=== PATIENT | male | born 1965 | race Caucasian/White ===

== ENCOUNTER 2016-12-25 15:11 | Emergency (ER) | payer BC ==
[2016-12-25 15:22] VITALS: RESP 20
[2016-12-25] MEDS ORDERED: Sodium Chloride 0.9% 1,000 ML IV ONE (16:41)
[2016-12-25 16:59] LABS: URINE BILIRUBIN NEGATIVE (NEGATIVE); URINE BLOOD NEGATIVE (NEGATIVE); URINE COLOR Yellow (YELLOW); URINE GLUCOSE (UA) 3+ mg/dL (Normal); URINE KETONE NEGATIVE (NEGATIVE); URINE LEUKOCYTE ESTERASE NEG Leu/uL (Negative); URINE PROTEIN NEGATIVE (NEGATIVE); URINE UROBILINOGEN NORMAL mg/dL (0.2-1.0); WBC URINE < 1 /hpf (0-5)
[2016-12-25 17:02] LABS: EOS # 0.1 K/uL (0.0-0.7); LYMPH # 0.9 K/uL (1.0-4.3); MONO # 0.7 K/uL (0.0-0.8); RED CELL DISTRIBUTION WIDTH 13.5 % (11.5-14.5)
[2016-12-25 17:04] LABS: BASO % 0.6 % (0.0-2.0); EOS % 3.5 % (0.0-4.0); HEMATOCRIT 48.3 % (35.0-51.0); LYMPH % 34.3 % (20.0-40.0); MEAN CELL VOLUME 93.1 fL (80.0-94.0); MEAN CORPUSCULAR HEMOGLOBIN 30.7 pg (27.0-31.0); MEAN CORPUSCULAR HGB CONC 32.9 g/dL (33.0-37.0); MEAN PLATELET VOLUME 8.8 fL (7.2-11.7); MONO % 27.9 % (0.0-10.0); NRBC % 0.4 % (0.0-2.0); PLATELET COUNT 160 K/uL (130-400)
[2016-12-25 17:04] LABS: VENOUS BLOOD GAS BASE EXCESS 3.7 mmol/L (0.0-2.0); VENOUS BLOOD GAS PCO2 54 mmHg (40-60); VENOUS BLOOD PH 7.36 (7.32-7.43)
[2016-12-25 17:07] LABS: WHITE BLOOD COUNT 2.6 K/uL (4.8-10.8)
[2016-12-25 17:25] LABS: CHLORIDE 102 mmol/L (98-107)
[2016-12-25 17:26] VITALS: O2SAT 95
[2016-12-25 17:26] LABS: POTASSIUM 3.5 mmol/L (3.6-5.2); SODIUM 140 mmol/L (132-148)
[2016-12-25 17:28] LABS: ALB/GLOB RATIO 1.2 (1.0-2.1); BILIRUBIN,TOTAL 0.7 mg/dL (0.2-1.3); CARBON DIOXIDE 28 mmol/L (22-30); GFR AFRICAN-AMERICAN > 60; TOTAL PROTEIN 7.6 g/dL (6.3-8.3)
[2016-12-25 17:29] LABS: ALKALINE PHOSPHATASE 53 U/L (38-126); ALT/SGPT 50 U/L (21-72); AST/SGOT 42 U/L (17-59); BLOOD UREA NITROGEN 18 mg/dL (9-20); CALCIUM 8.9 mg/dl (8.6-10.4); GLUCOSE,RANDOM 87 mg/dL (75-110)
[2016-12-25] MEDS ORDERED: Sodium Chloride 0.9% 1,000 ML ONE (17:33)
[2016-12-25 17:44] LABS: BASOPHIL 1 % (0-2); EOSINOPHIL 3 % (0-4); NEUTROPHIL 27 % (50-75); TOTAL CELLS COUNTED 100
--- NOTE | 2016-12-25 18:37 | C.PDOC ---
History Of Present Illness 51 year old male presents to the ED with complaints of internal fever and bodyaches including the back and legs beginning 8 days ago. Patient states he recently returning from visiting [facility] and denies any headache, neck pain, dizziness, SOB, nausea, or vomiting. Time Seen by Provider: 12/25/16 16:24 Chief Complaint (Nursing): Flu-like Symptoms History Per: Patient History/Exam Limitations: no limitations Onset/Duration Of Symptoms: Days (8 days ago when returned from [facility] ) Current Symptoms Are (Timing): Still Present Associated Symptoms: Fever (subjective ). denies: Chills, Cough, Vomiting, Diarrhea Recent travel outside of the [place]: Yes (to [facility] for visiting) Past Medical History Reviewed: Historical Data, Nursing Documentation, Vital Signs Vital Signs: Last Vital Signs Temp 99.1 F 12/25/16 18:39 Pulse 77 12/25/16 18:39 Resp 20 12/25/16 18:39 BP 114/67 12/25/16 18:39 Pulse Ox 95 12/25/16 18:39 - Medical History PMH: HTN, Hypercholesterolemia Surgical History: Cholecystectomy Family History: States: Unknown Family Hx - Social History Hx Alcohol Use: No Hx Substance Use: No - Immunization History Hx Tetanus Toxoid Vaccination: No Hx Influenza Vaccination: No Hx Pneumococcal Vaccination: No Review Of Systems Constitutional: Positive for: Fever (subjective ), Other (generalized body aches ). Negative for: Chills, Sweats Cardiovascular: Negative for: Chest Pain, Palpitations Respiratory: Negative for: Cough, Shortness of Breath Gastrointestinal: Negative for: Nausea, Vomiting, Abdominal Pain, Diarrhea Neurological: Negative for: Headache Physical Exam - Physical Exam Appears: Non-toxic, No Acute Distress, Other (patient is afebrile in the ED and is obese ) Skin: Warm, Dry, No Rash, Other (flushed ) Head: Atraumatic Eye(s): bilateral: PERRL, EOMI Oral Mucosa: Moist Neck: Supple Chest: Symmetrical, No Deformity Cardiovascular: Rhythm Regular Respiratory: No Rales, No Rhonchi, No Stridor, No Wheezing Gastrointestinal/Abdominal: Soft, No Tenderness, No Distention, No Guarding, No Rebound Neurological/Psych: Oriented x3 (awake, alert, and cooperative ) ED Course And Treatment - Laboratory Results Result Diagrams: 12/25/16 16:54 12/25/16 16:54 O2 Sat by Pulse Oximetry: 95 (room air) Medical Decision Making Medical Decision Making: Patient was given motrin, Tylenol, and blood work was performed. Blood work was unremarkable aside from a slightly low WBC. HIV test was offered but patient refused and stated he would follow up in the clinic. Disposition Counseled Patient/Family Regarding: Studies Performed, Diagnosis, Need For Followup - Disposition Referrals: [facility] [Outside] Disposition: HOME/ ROUTINE Disposition Time: 18:35 Condition: STABLE Prescriptions: Ibuprofen [Motrin] 600 mg PO TID #15 tab Instructions: Viral Syndrome (ED) Forms: Gen Discharge Inst Maltese, Work Excuse - POA Present On Arrival: None - Clinical Impression Clinical Impression: Influenza-like illness - Scribe Statement The provider has reviewed the documentation as recorded by the Scribe Huma Nova All medical record entries made by the Scribe were at my direction and personally dictated by me. I have reviewed the chart and agree that the record accurately reflects my personal performance of the history, physical exam, medical decision making, and the department course for this patient. I have also personally directed, reviewed, and agree with the discharge instructions and disposition.
[2016-12-25 18:39] VITALS: BP 114/67; PULSE 77; TEMP 99.1
--- NOTE | 2016-12-26 08:46 | RAD ---
HISTORY: Sepsis Patient COMPARISON: 11/27/2015 FINDINGS: LUNGS: No active pulmonary disease. PLEURA: No significant pleural effusion identified, no pneumothorax apparent. CARDIOVASCULAR: Normal. OSSEOUS STRUCTURES: No significant abnormalities. VISUALIZED UPPER ABDOMEN: Normal. OTHER FINDINGS: None. IMPRESSION: No active disease.
== END 2016-12-25 18:42 | disposition home or self-care (01) ==
LOC: C.ER 15:11
DX: J11.1 Influenza due to unidentified influenza virus with other respiratory manifestations (principal); I10 Essential (primary) hypertension; E78.00 Pure hypercholesterolemia, unspecified
CPT/HCPCS: 71010; 80053; 81001; 82803; 85025; 87040; 87086; 96360; 99285; J7040

== ENCOUNTER 2017-06-29 00:28 | Emergency (ER) | payer BC ==
[2017-06-29 00:41] VITALS: RESP 18
[2017-06-29 01:27] LABS: BASO % 0.4 % (0.0-2.0); EOS # 0.1 K/uL (0.0-0.7); EOS % 0.9 % (0.0-4.0); HEMATOCRIT 43.1 % (35.0-51.0); LYMPH # 0.9 K/uL (1.0-4.3); LYMPH % 16.4 % (20.0-40.0); MEAN CELL VOLUME 91.6 fL (80.0-94.0); MEAN CORPUSCULAR HEMOGLOBIN 32.3 pg (27.0-31.0); MEAN CORPUSCULAR HGB CONC 35.2 g/dL (33.0-37.0); MEAN PLATELET VOLUME 8.2 fL (7.2-11.7); MONO # 0.7 K/uL (0.0-0.8); MONO % 11.4 % (0.0-10.0); RED CELL DISTRIBUTION WIDTH 13.4 % (11.5-14.5); WHITE BLOOD COUNT 5.8 K/uL (4.8-10.8)
[2017-06-29 01:38] LABS: ALB/GLOB RATIO 1.5 (1.0-2.1); ALKALINE PHOSPHATASE 45 U/L (38-126); ALT/SGPT 84 U/L (21-72); AMYLASE 72 U/L (30-110); AST/SGOT 118 U/L (17-59); BILIRUBIN,TOTAL 0.9 mg/dL (0.2-1.3); BLOOD UREA NITROGEN 27 mg/dL (9-20); CALCIUM 8.3 mg/dl (8.6-10.4); CARBON DIOXIDE 24 mmol/L (22-30); CHLORIDE 100 mmol/L (98-107); GFR AFRICAN-AMERICAN > 60; GLUCOSE,RANDOM 197 mg/dL (75-110); POTASSIUM 3.6 mmol/L (3.6-5.2); SODIUM 135 mmol/L (132-148); TOTAL PROTEIN 6.7 g/dL (6.3-8.3)
[2017-06-29 01:41] LABS: RBC URINE 1 /hpf (0-3); URINE BILIRUBIN NEGATIVE (NEGATIVE); URINE BLOOD NEGATIVE (NEGATIVE); URINE COLOR Yellow (YELLOW); URINE GLUCOSE (UA) 3+ mg/dL (Normal); URINE KETONE NEGATIVE (NEGATIVE); URINE LEUKOCYTE ESTERASE NEG Leu/uL (Negative); URINE PROTEIN NEGATIVE (NEGATIVE); URINE UROBILINOGEN NORMAL mg/dL (0.2-1.0); WBC URINE < 1 /hpf (0-5)
[2017-06-29 03:31] VITALS: BP 127/73; PULSE 93; TEMP 98.1; O2SAT 95
--- NOTE | 2017-06-29 04:05 | C.PDOC ---
Time Seen by Provider: 06/29/17 01:02 Chief Complaint (Nursing): Abdominal Pain Past Medical History Vital Signs: Last Vital Signs Temp 98.1 F 06/29/17 03:30 Pulse 93 H 06/29/17 03:30 Resp 18 06/29/17 03:30 BP 127/73 06/29/17 03:30 Pulse Ox 95 06/29/17 03:30 - Medical History PMH: HTN, Hypercholesterolemia Surgical History: Cholecystectomy Family History: States: Unknown Family Hx - Social History Hx Alcohol Use: No Hx Substance Use: No - Immunization History Hx Tetanus Toxoid Vaccination: No Hx Influenza Vaccination: No Hx Pneumococcal Vaccination: No ED Course And Treatment - Laboratory Results Result Diagrams: 06/29/17 01:24 06/29/17 01:24 O2 Sat by Pulse Oximetry: 95 Disposition - Disposition Disposition: HOME/ ROUTINE Disposition Time: 04:00 Condition: IMPROVED Instructions: Acute Abdominal Pain (ED) Forms: Gen Discharge Inst Barbadian - Clinical Impression Clinical Impression: Abdominal pain, Abdominal colic
--- NOTE | 2017-06-29 11:11 | RAD ---
PROCEDURE: Radiographs of the chest and abdomen (obstructive series) HISTORY: pain/vomiting COMPARISON: No prior. TECHNIQUE: AP radiograph of the chest, with upright and supine radiographs of the abdomen. FINDINGS: CHEST: Lungs: The lungs are well inflated and clear. Cardiovascular: Normal size heart. No pulmonary vascular congestion. Pleura: No pleural fluid. No pneumothorax. Other findings: None. ABDOMEN AND PELVIS: Bowel: The bowel gas pattern is nonobstructive. No air-fluid levels. Free air: None. Bones: Unremarkable. Other findings: None. IMPRESSION: Nonobstructive bowel-gas pattern. Clear lungs.
== END 2017-06-29 04:07 | disposition home or self-care (01) ==
LOC: C.ER 00:28
DX: R10.84 Generalized abdominal pain (principal)
CPT/HCPCS: 74022; 80053; 81001; 82150; 83690; 85025; 96374; 96375; 99285; J1885

== ENCOUNTER 2018-03-30 17:27 | Emergency (ER) | payer SELFPAY ==
[2018-03-30 18:12] VITALS: O2SAT 95
[2018-03-30] MEDS ORDERED: Sodium Chloride 0.9% 1,000 ML IV ONE (20:04)
[2018-03-30 20:30] LABS: BASO % 0.6 % (0.0-2.0); EOS % 0.6 % (0.0-4.0); HEMOGLOBIN 15.7 g/dL (12.0-18.0); LYMPH # 1.6 K/uL (1.0-4.3); LYMPH % 21.3 % (20.0-40.0); MEAN CELL VOLUME 92.4 fL (80.0-94.0); MEAN CORPUSCULAR HEMOGLOBIN 31.4 pg (27.0-31.0); MEAN CORPUSCULAR HGB CONC 33.9 g/dL (33.0-37.0); MEAN PLATELET VOLUME 8.6 fL (7.2-11.7); NEUT # 4.8 K/uL (1.8-7.0); NEUT % 64.5 % (50.0-75.0); NRBC % 0.1 % (0.0-2.0); RBC 5.01 Mil/uL (4.40-5.90); RED CELL DISTRIBUTION WIDTH 13.5 % (11.5-14.5); WHITE BLOOD COUNT 7.4 K/uL (4.8-10.8)
[2018-03-30] MEDS ORDERED: Sodium Chloride 0.9% 1,000 ML ONE (20:33)
[2018-03-30 20:42] LABS: ALB/GLOB RATIO 1.2 (1.0-2.1); ALBUMIN 4.1 g/dL (3.5-5.0); ALT/SGPT 40 U/L (21-72); AST/SGOT 24 U/L (17-59); BLOOD UREA NITROGEN 18 mg/dL (9-20); CALCIUM 8.9 mg/dl (8.6-10.4); GFR NON-AFRICAN AMERICAN > 60
--- NOTE | 2018-03-30 20:49 | C.PDOC ---
History Of Present Illness 52 year old male with a history of diabetes and HTN presents to the emergency department with complaints of 3 days of body aches "all over", occasional diarrhea, vomiting, and subjective fever. Patient states that he has not seen his PMD. pt taking tylenol 1-2 times per day. Time Seen by Provider: 03/30/18 19:01 Chief Complaint (Nursing): Flu-like Symptoms History Per: Patient History/Exam Limitations: no limitations Onset/Duration Of Symptoms: Days (3) Current Symptoms Are (Timing): Still Present Past Medical History Reviewed: Historical Data, Nursing Documentation, Vital Signs Vital Signs: Last Vital Signs Temp 98.4 F 03/30/18 21:31 Pulse 80 03/30/18 21:31 Resp 20 03/30/18 21:31 BP 101/60 03/30/18 21:31 Pulse Ox 95 04/02/18 02:46 - Medical History PMH: Diabetes, HTN, Hypercholesterolemia Surgical History: Cholecystectomy Family History: States: No Known Family Hx - Social History Hx Alcohol Use: No Hx Substance Use: No - Immunization History Hx Tetanus Toxoid Vaccination: No Hx Influenza Vaccination: No Hx Pneumococcal Vaccination: No Review Of Systems Constitutional: Positive for: Fever, Malaise, Other (myalgias). Negative for: Chills ENT: Negative for: Ear Pain, Throat Pain Cardiovascular: Negative for: Chest Pain Respiratory: Negative for: Cough, Shortness of Breath Gastrointestinal: Positive for: Nausea, Vomiting, Diarrhea. Negative for: Abdominal Pain Skin: Negative for: Rash Neurological: Negative for: Weakness, Numbness Physical Exam - Physical Exam Appears: Non-toxic, In Acute Distress (uncomfortable), Other (febrile) Skin: Warm, Dry Head: Atraumatic, Normacephalic Eye(s): bilateral: Normal Inspection Ear(s): Bilateral: Normal Oral Mucosa: Moist Throat: No Erythema, No Exudate Neck: Normal ROM, Supple Lymphatic: No Adenopathy Chest: Symmetrical, No Tenderness Cardiovascular: Rhythm Regular, No Murmur Respiratory: No Decreased Breath Sounds, No Rales, No Rhonchi, No Wheezing Gastrointestinal/Abdominal: Bowel Sounds, Soft, No Tenderness, No Distention, No Guarding, No Rebound Extremity: Normal ROM (all extremities), No Pedal Edema Neurological/Psych: Oriented x3, Normal Speech, Normal Cognition ED Course And Treatment - Laboratory Results Result Diagrams: 03/30/18 20:24 03/30/18 20:24 O2 Sat by Pulse Oximetry: 95 (RA) Pulse Ox Interpretation: Normal Progress Note: Plan: CMP. CBC. NaCl IV Fluids. Toradol 30mg IVP. Tylenol 975mg PO. Zofran 4mg IVP. Influenza A B Medical Decision Making Medical Decision Making: pt has normal labs, no episodes of vomiting or diahrrea while in ed. flu negative. pt feeling better after iv fluids and toradol., d/c home with pmd f/u Disposition Counseled Patient/Family Regarding: Studies Performed, Diagnosis, Need For F ollowup, Rx Given - Disposition Referrals: Denny Johnson MD [Medical Doctor] - Disposition: HOME/ ROUTINE Disposition Time: 22:12 Condition: IMPROVED Additional Instructions: Please take Tylenol or Motrin every 6 hours for fever or aches and pains. Alternate the 2 medicines. Drink increased fluids. Increased rest. Follow up with your doctor in 1-2 days, Return to ER for worse symptoms, persistent vomiting or diarrhea or any other concerns. 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 - Scribe Statement The provider has reviewed the documentation as recorded by the Scribe (Denny Peraza) All medical record entries made by the Scribe were at my direction and personally dictated by me. I have reviewed the chart and agree that the record accurately reflects my personal performance of the history, physical exam, medical decision making, and the department course for this patient. I have also personally directed, reviewed, and agree with the discharge instructions and disposition.
[2018-03-30 21:32] VITALS: BP 101/60; PULSE 80; RESP 20; TEMP 98.4
== END 2018-03-30 22:40 | disposition home or self-care (01) ==
LOC: C.ER 17:27
DX: B34.9 Viral infection, unspecified (principal)
CPT/HCPCS: 80053; 85025; 87804; 96361; 96374; 96375; 99284; J1885; J2405; J7030